=== PATIENT | male | born 1970 | race Caucasian/White ===

== ENCOUNTER 2020-02-12 08:41 | Outpatient (REF) | payer BC, SELFPAY ==
[2020-02-12 10:07] LABS: MANUAL DIFF FLAG NO
[2020-02-12 10:16] LABS: Basophils Absolute Auto 0.1 X10*3/uL (0.0-0.2); Basophils Percent Auto 0.7 % (0-2); Eosinophils Absolute Auto 0.3 X10*3/uL (0.0-0.4); Eosinophils Percent Auto 2.3 % (0-4); Hemoglobin 15.3 g/dl (14.0-18.0); Imm Gran Abs Auto 0.11 X10*3/uL (0.00-0.03); Lymphocytes Absolute Auto 4.1 X10*3/uL (1.2-4.9); Lymphocytes Percent Auto 38.7 % (20-40); Mean Corpuscular HGB Conc 33.3 g/dl (31.0-36.0); Mean Corpuscular Hemoglobin 30.1 pg (27.0-33.0); Mean Corpuscular Volume 90.6 fL (80-98); Mean Platelet Volume 10.2 fL (9.4-12.4); Monocytes Absolute Auto 0.7 X10*3/uL (0.1-1.2); Monocytes Percent Auto 6.9 % (2-11); Neutrophils Absolute Auto 5.4 X10*3/uL (2.0-8.3); Neutrophils Percent Auto 50.4 % (45-73); Platelet Count 296 X10*3/uL (160-400); Red Blood Count 5.08 X10*6/uL (4.60-5.80); Red Cell Distribution Width 12.5 % (11.0-16.0); White Blood Count 10.7 X10*3/uL (4.8-10.8)
[2020-02-12 10:23] LABS: Estimated Average Glucose 217 mg/dL; Hemoglobin A1c % 9.2 %
[2020-02-12 11:07] LABS: Alanine Aminotransferase 33 U/L (0-40); Albumin Level 4.5 g/dL (3.5-5.0); Alkaline Phosphatase 69 U/L (39-117); Anion Gap 13 (12-20); Aspartate Amino Transferase 27 U/L (5-37); Bilirubin Total 0.6 mg/dL (0.0-1.0); Blood Urea Nitrogen 24 mg/dL (9-16); Calcium 9.9 mg/dL (8.4-10.2); Carbon Dioxide 31 mmol/L (22-29); Chloride 102 mmol/L (96-108); Cholesterol 153 mg/dL; Estimated Glomerular Filt Rate > 60; Glucose Fasting 129 mg/dL (60-99); HDL Cholesterol 36 mg/dL; LDL Cholesterol Calculated 99 mg/dl; Potassium 4.2 mmol/l (3.3-5.1); Sodium 142 mmol/L (135-145); Total Protein 7.3 g/dL (6.5-8.0); Triglycerides 91 mg/dL
[2020-02-12 12:08] LABS: Creatinine Urine 226.58 mg/dL; Microalbum/Creatinine Ratio Ur 14.1 ug/mg cr
== END 2020-02-12 08:42 | disposition home or self-care (01) ==
LOC: HO.LAB 08:41
PROVIDERS: PCP Internal Medicine; Visit Provider Internal Medicine
DX: J44.9 Chronic obstructive pulmonary disease, unspecified (principal); I10 Essential (primary) hypertension; E11.9 Type 2 diabetes mellitus without complications
CPT/HCPCS: 36415; 80053; 80061; 82043; 83036; 85025

== ENCOUNTER 2020-05-11 06:48 | Outpatient (REF) | payer BC, SELFPAY ==
[2020-05-11 07:53] LABS: Estimated Average Glucose 206 mg/dL; Hemoglobin A1c % 8.8 %
[2020-05-11 07:58] LABS: Anion Gap 15 (12-20); Blood Urea Nitrogen 25 mg/dL (9-16); Calcium 9.6 mg/dL (8.4-10.2); Carbon Dioxide 27 mmol/L (22-29); Chloride 105 mmol/L (96-108); Estimated Glomerular Filt Rate > 60; Glucose Random 148 mg/dL (60-115); Potassium 4.7 mmol/l (3.3-5.1); Sodium 142 mmol/L (135-145)
== END 2020-05-11 06:49 | disposition home or self-care (01) ==
LOC: HO.LAB 06:48
PROVIDERS: Visit Provider Internal Medicine
DX: E11.9 Type 2 diabetes mellitus without complications (principal); J44.9 Chronic obstructive pulmonary disease, unspecified; E78.00 Pure hypercholesterolemia, unspecified; Z86.73 Personal history of transient ischemic attack (TIA), and cerebral infarction without residual deficits
CPT/HCPCS: 36415; 80048; 83036

== ENCOUNTER 2020-08-10 06:57 | Outpatient (REF) | payer BC, SELFPAY ==
[2020-08-10 07:54] LABS: MANUAL DIFF FLAG NO
[2020-08-10 08:04] LABS: Basophils Absolute Auto 0.1 X10*3/uL (0.0-0.2); Basophils Percent Auto 0.7 % (0-2); Eosinophils Absolute Auto 0.4 X10*3/uL (0.0-0.4); Eosinophils Percent Auto 3.5 % (0-4); Hematocrit 44.7 % (42-52); Hemoglobin 14.6 g/dl (14.0-18.0); Imm Gran Abs Auto 0.04 X10*3/uL (0.00-0.03); Imm Gran Pct Auto 0.4 % (0.0-0.4); Lymphocytes Absolute Auto 3.5 X10*3/uL (1.2-4.9); Lymphocytes Percent Auto 34.6 % (20-40); Mean Corpuscular HGB Conc 32.7 g/dl (31.0-36.0); Mean Corpuscular Hemoglobin 30.2 pg (27.0-33.0); Mean Corpuscular Volume 92.4 fL (80-98); Mean Platelet Volume 10.1 fL (9.4-12.4); Monocytes Absolute Auto 0.6 X10*3/uL (0.1-1.2); Monocytes Percent Auto 5.7 % (2-11); Neutrophils Absolute Auto 5.6 X10*3/uL (2.0-8.3); Neutrophils Percent Auto 55.1 % (45-73); Platelet Count 259 X10*3/uL (160-400); Red Blood Count 4.84 X10*6/uL (4.60-5.80); Red Cell Distribution Width 12.5 % (11.0-16.0); White Blood Count 10.2 X10*3/uL (4.8-10.8)
[2020-08-10 08:33] LABS: Alanine Aminotransferase 21 U/L (0-40); Albumin Level 4.3 g/dL (3.5-5.0); Alkaline Phosphatase 57 U/L (39-117); Anion Gap 15 (12-20); Aspartate Amino Transferase 19 U/L (5-37); Bilirubin Total 0.4 mg/dL (0.0-1.0); Blood Urea Nitrogen 15 mg/dL (9-16); Calcium 9.1 mg/dL (8.4-10.2); Carbon Dioxide 25 mmol/L (22-29); Chloride 104 mmol/L (96-108); Cholesterol 142 mg/dL; Estimated Glomerular Filt Rate > 60; Glucose Fasting 155 mg/dL (60-99); HDL Cholesterol 41 mg/dL; LDL Cholesterol Calculated 84 mg/dl; Potassium 4.3 mmol/L (3.3-5.1); Sodium 140 mmol/L (135-145); Total Protein 6.9 g/dL (6.5-8.0); Triglycerides 85 mg/dL
[2020-08-10 08:56] LABS: Creatinine Urine 172.19 mg/dL; Microalbum/Creatinine Ratio Ur 6.9 ug/mg cr
[2020-08-10 09:09] LABS: Estimated Average Glucose 180 mg/dL; Hemoglobin A1c % 7.9 %
== END 2020-08-10 06:58 | disposition home or self-care (01) ==
LOC: HO.LAB 06:57
PROVIDERS: PCP Internal Medicine; Visit Provider Internal Medicine
DX: J44.9 Chronic obstructive pulmonary disease, unspecified (principal); E11.9 Type 2 diabetes mellitus without complications
CPT/HCPCS: 36415; 80053; 80061; 82043; 83036; 85025

== ENCOUNTER 2021-02-13 10:22 | Outpatient (REF) | payer BC, SELFPAY ==
[2021-02-13 10:32] LABS: MANUAL DIFF FLAG NO
[2021-02-13 11:23] LABS: Estimated Average Glucose 166 mg/dL; Hemoglobin A1c % 7.4 %
[2021-02-13 11:33] LABS: Basophils Absolute Auto 0.1 X10*3/uL (0.0-0.2); Basophils Percent Auto 0.9 % (0-2); Eosinophils Absolute Auto 0.4 X10*3/uL (0.0-0.4); Eosinophils Percent Auto 3.9 % (0-4); Hematocrit 40.9 % (42-52); Hemoglobin 13.9 g/dl (14.0-18.0); Imm Gran Abs Auto 0.02 X10*3/uL (0.00-0.03); Imm Gran Pct Auto 0.2 % (0.0-0.4); Lymphocytes Absolute Auto 3.9 X10*3/uL (1.2-4.9); Lymphocytes Percent Auto 41.5 % (20-40); Mean Corpuscular Hemoglobin 30.5 pg (27.0-33.0); Mean Corpuscular Volume 89.9 fL (80-98); Mean Platelet Volume 10.3 fL (9.4-12.4); Monocytes Absolute Auto 0.7 X10*3/uL (0.1-1.2); Monocytes Percent Auto 7.8 % (2-11); Neutrophils Absolute Auto 4.3 X10*3/uL (2.0-8.3); Neutrophils Percent Auto 45.7 % (45-73); Platelet Count 264 X10*3/uL (160-400); Red Blood Count 4.55 X10*6/uL (4.60-5.80); Red Cell Distribution Width 12.4 % (11.0-16.0); White Blood Count 9.5 X10*3/uL (4.8-10.8)
[2021-02-13 11:45] LABS: Creatinine Urine 78.83 mg/dL; Microalbum/Creatinine Ratio Ur 10.1 ug/mg cr
[2021-02-13 11:47] LABS: Alanine Aminotransferase 26 U/L (0-40); Albumin Level 4.4 g/dL (3.5-5.0); Alkaline Phosphatase 67 U/L (39-117); Anion Gap 12 (12-20); Aspartate Amino Transferase 27 U/L (5-37); Bilirubin Total 0.3 mg/dL (0.0-1.0); Blood Urea Nitrogen 20 mg/dL (9-16); Calcium 9.9 mg/dL (8.4-10.2); Carbon Dioxide 28 mmol/L (22-29); Chloride 105 mmol/L (96-108); Estimated Glomerular Filt Rate > 60; Glucose Random 131 mg/dL (60-115); Sodium 141 mmol/L (135-145)
== END 2021-02-13 10:23 | disposition home or self-care (01) ==
LOC: HO.LAB 10:22
PROVIDERS: PCP Internal Medicine; Visit Provider Internal Medicine
DX: E11.9 Type 2 diabetes mellitus without complications (principal); J44.9 Chronic obstructive pulmonary disease, unspecified; Z85.9 Personal history of malignant neoplasm, unspecified
CPT/HCPCS: 36415; 80053; 82043; 83036; 85025

== ENCOUNTER 2021-08-30 08:41 | Outpatient (REF) | payer BC, SELFPAY ==
[2021-08-30 09:09] LABS: MANUAL DIFF FLAG NO
[2021-08-30 09:44] LABS: Basophils Absolute Auto 0.1 X10*3/uL (0.0-0.2); Basophils Percent Auto 0.5 % (0-2); Eosinophils Absolute Auto 0.3 X10*3/uL (0.0-0.4); Eosinophils Percent Auto 2.6 % (0-4); Hematocrit 43.8 % (42.0-52.0); Hemoglobin 14.4 g/dl (14.0-18.0); Imm Gran Abs Auto 0.02 X10*3/uL (0.00-0.03); Imm Gran Pct Auto 0.2 % (0.0-0.4); Lymphocytes Percent Auto 31.5 % (20-40); Mean Corpuscular HGB Conc 32.9 g/dl (31.0-36.0); Mean Corpuscular Hemoglobin 29.9 pg (27.0-33.0); Mean Corpuscular Volume 91.1 fL (80.0-98.0); Mean Platelet Volume 10.3 fL (9.4-12.4); Monocytes Absolute Auto 0.6 X10*3/uL (0.1-1.2); Monocytes Percent Auto 6.7 % (2-11); Neutrophils Absolute Auto 5.6 x10*3/uL (2.0-8.3); Neutrophils Percent Auto 58.5 % (45-73); Platelet Count 239 X10*3/uL (160-400); Red Blood Count 4.81 X10*6/uL (4.60-5.80); Red Cell Distribution Width 12.8 % (11.0-16.0); White Blood Count 9.5 X10*3/uL (4.8-10.8)
[2021-08-30 10:20] LABS: Alanine Aminotransferase 24 U/L (0-40); Albumin Level 4.1 g/dL (3.5-5.0); Alkaline Phosphatase 57 U/L (39-117); Anion Gap 14 (12-20); Aspartate Amino Transferase 28 U/L (5-37); Bilirubin Total 0.7 mg/dL (0.0-1.0); Blood Urea Nitrogen 19 mg/dL (9-16); Calcium 9.4 mg/dL (8.4-10.2); Carbon Dioxide 26 mmol/L (22-29); Chloride 105 mmol/L (96-108); Cholesterol 135 mg/dL; Estimated Glomerular Filt Rate > 60; Glucose Fasting 141 mg/dL (60-99); HDL Cholesterol 40 mg/dL; LDL Cholesterol Calculated 84 mg/dl; Potassium 4.2 mmol/L (3.3-5.1); Sodium 141 mmol/L (135-145); Total Protein 6.8 g/dL (6.5-8.0); Triglycerides 58 mg/dL
[2021-08-30 10:33] LABS: Prostate Specific Antigen 1.13 ng/mL (<0.05-4.0)
[2021-08-30 10:45] LABS: Estimated Average Glucose 157 mg/dL; Hemoglobin A1c % 7.1 %
[2021-08-30 10:47] LABS: Microalbumin Urine < 5.0 mg/L
== END 2021-08-30 08:42 | disposition home or self-care (01) ==
LOC: HO.LAB 08:41
PROVIDERS: PCP Internal Medicine; Visit Provider Internal Medicine
DX: Z00.00 Encounter for general adult medical examination without abnormal findings (principal); E11.9 Type 2 diabetes mellitus without complications; Z12.5 Encounter for screening for malignant neoplasm of prostate
CPT/HCPCS: 36415; 80053; 80061; 82043; 83036; 84153; 85025

== ENCOUNTER 2021-10-22 08:35 | Day surgery (SDC) | payer BC, SELFPAY ==
[2021-10-14 16:22] VITALS: BMI 23.8
--- NOTE | 2021-10-21 12:32 | HO.ANESPROP2 ---
Documented by User: Maggie Cabrera NP 10/21/21 12:33 HPI - Anesthesia Eval Consult details Narrative: 51yo M for Colonoscopy Suboxon daily PMFSH Past Medical History Medical History Asthma COPD (chronic obstructive pulmonary disease) Diabetes Elevated cholesterol Hx-TIA (transient ischemic attack) Surgical History Surgical History History of back surgery History of lung biopsy Social History Social History Patient Tobacco Use Status: Current everyday Tobacco user Tobacco use type: Cigarette Cigarettes Per Day: 4 Use of substances other than those prescribed or required for medical reasons: No Are you DNR?: No Advance Directives: No Advance Directives Information Provided: Yes Meds Allergies Allergy/AdvReac Type Severity Reaction Status Date / Time No Known Allergies Allergy Mild NOT Unverified 01/16/20 14:37 APPLICABLE Home Medications Medication Instructions Recorded Confirmed Last Taken Type albuterol sulfate 90 mcg/actuation 2 puff PO TID PRN Shortness Of 10/14/21 10/14/21 Unknown History aerosol inhaler Breath Or Wheezing aspirin 25 mg-dipyridamole 200 mg 1 tab PO BID 10/14/21 10/14/21 Unknown History capsule,ext.release 12 hr multiphase atorvastatin 80 mg tablet 1 tab PO DAILY 10/14/21 10/14/21 Unknown History budesonide-formoterol HFA 160 1 puff PO BID 10/14/21 10/14/21 Unknown History mcg-4.5 mcg/actuation aerosol inhaler (Symbicort) buprenorphine 8 mg-naloxone 2 mg 1.25 strip sublingual DAILY 10/14/21 10/14/21 Unknown History sublingual film escitalopram oxalate 10 mg tablet 1 tab PO DAILY 10/14/21 10/14/21 Unknown History Exam Exam Date and Time: October 21, 2021 1232 Height,Weight and Vital Signs: Height 5 ft 10 in Weight 75.296 kg Pertinent Lab Results Pertinent Lab Results: Laboratory Tests 08/30/21 08/30/21 09:07 09:07 WBC 9.5 Hgb 14.4 Hct 43.8 Plt Count 239 Sodium 141 Potassium 4.2 Chloride 105 Carbon Dioxide 26 BUN 19 H Creatinine 0.87 Assessment and Plan Assessment Anesthesia Assessment: Chart Reviewed Documented by User: Rigo Somers MD 10/22/21 09:18 [facility] Past Medical History Medical History Asthma COPD (chronic obstructive pulmonary disease) Diabetes Elevated cholesterol Hx-TIA (transient ischemic attack) Family History Family history of problems with anesthesia: No Surgical History Surgical History History of back surgery History of lung biopsy History of Problems with Anesthesia: No Social History Social History Patient Tobacco Use Status: Current everyday Tobacco user Tobacco use type: Cigarette Cigarettes Per Day: 4 Use of substances other than those prescribed or required for medical reasons: No Are you DNR?: No Advance Directives: No Advance Directives Information Provided: Yes Meds Allergies Allergy/AdvReac Type Severity Reaction Status Date / Time No Known Allergies Allergy Mild NOT Unverified 01/16/20 14:37 APPLICABLE Home Medications Medication Instructions Recorded Confirmed Last Taken Type albuterol sulfate 90 mcg/actuation 2 puff PO TID PRN Shortness Of 10/14/21 10/14/21 Unknown History aerosol inhaler Breath Or Wheezing aspirin 25 mg-dipyridamole 200 mg 1 tab PO BID 10/14/21 10/14/21 Unknown History capsule,ext.release 12 hr multiphase atorvastatin 80 mg tablet 1 tab PO DAILY 10/14/21 10/14/21 Unknown History budesonide-formoterol HFA 160 1 puff PO BID 10/14/21 10/14/21 Unknown History mcg-4.5 mcg/actuation aerosol inhaler (Symbicort) buprenorphine 8 mg-naloxone 2 mg 1.25 strip sublingual DAILY 10/14/21 10/14/21 Unknown History sublingual film escitalopram oxalate 10 mg tablet 1 tab PO DAILY 10/14/21 10/14/21 Unknown History Exam Airway Mallampati Class: II TM Dist: >3cm Neck ROM: Full Assessment and Plan Assessment Anesthesia Assessment: Anesthesia Plan Discussed and Smoking Cess. Discussed Final Anesthetic Review Family History of Problems with Anesthesia: No History of Problems with Anesthesia: No NPO: Yes ASA Class: II and III Final Preanesthetic Review: No Changes in Pt Med Stat, Meds/Allgs Chart Reviewed, Consent Obtained/Reviewed and Anes Risks/Benef Reviewed Patient Risk: Intermediate Procedure Risk: Low Anesthetic Plan Anesthetic Plan: GA and MAC: Disposition: Standard PACU
[2021-10-22 09:26] VITALS: BP 144/85; PULSE 65; RESP 16; TEMP 36.2; O2SAT 94
[2021-10-22 09:35] LABS: Glucose, Whole Blood 108 mg/dL (60-115)
[2021-10-22] MEDS: Lactated Ringers 1,000 ML 100 ML IVCONT (09:39)
--- NOTE | 2021-10-22 09:46 | MHC.SHP ---
Pre-Procedural Eval Section A Date of Service: 10/22/21 Section B Chief Complaint: screening Details of Present Illness: see H&P no changes Relevant Family History (Specify if Yes): No Relevant Social History: None Present Medications: see Short Stay Collaborative assessment Medical History: No relevant PMH History of Previous Operations: No relevant previous surgery Allergies: Allergies Allergy/AdvReac Type Severity Reaction Status Date / Time No Known Allergies Allergy Mild NOT Unverified 01/16/20 14:37 APPLICABLE Review of Systems Sugical H&P ROS: Negative: Constitution, Cardiovascular, Respiratory, Neurological, Psychiatric, Hem-Onc, Allergic/Immunologic, Gastrointestinal, Genitourinary, Musculoskeletal, Integumentary, Endocrine and Eyes/Ears/Nose/Throat Exam Surgical H&P Exam: Normal: HEENT, Normal: Heart, Normal: Lungs, Normal: Extremities, Normal: Abdomen, Normal: Skin and Normal: Neurological Plan Diagnosis/Plan: Unchanged I have reviewed the history and physical and performed a pertinent physical examination on my patient. No changes have occurred unless specified.
[2021-10-22 10:19] VITALS: BP 106/69; PULSE 58; RESP 16; TEMP 36.6; O2SAT 99
--- NOTE | 2021-10-22 10:21 | PM.OP ---
Brief Operative Note Date of Service: 10/22/21 Pre-op diagnosis: screening Post-op diagnosis: same Procedure: colonoscopy Surgeon: Sina Conte Anesthesia: MAC Was an Hybrid Technologist used for this Procedure?: No Estimated blood loss (mL): 0 Pathology: none sent Condition: stable Disposition: PACU
[2021-10-22 10:34] VITALS: BP 118/88; PULSE 62; RESP 18; TEMP 36.6; O2SAT 95
--- NOTE | 2021-10-22 11:36 | OP_ITS ---
SURGEON: Sina Conte MD INDICATIONS: Colon cancer screening. PREOPERATIVE DIAGNOSIS: POSTOPERATIVE DIAGNOSIS: PROCEDURE PERFORMED: Colonoscopy to the terminal ileum. ESTIMATED BLOOD LOSS: COMPLICATIONS: ANESTHESIA: Monitored anesthesia care. ASSISTANTS: SPECIMENS: DESCRIPTION OF PROCEDURE: History and physical was performed. The risks and benefits of the procedure were explained to the patient. Informed consent was obtained. The patient was placed in the left lateral decubitus position. A digital rectal exam was performed and was found to be normal. The Olympus pediatric video colonoscope was introduced into the rectum and advanced to the cecum without difficulty. The cecum was identified by transillumination, palpation, and identification of ileocecal valve. Examination was performed. The scope was removed. He tolerated the procedure well and was taken to recovery in stable condition. FINDINGS: The terminal ileum was examined and appeared normal. The visualized colonic mucosa was within normal limits without evidence of masses or ulcers. The quality of the prep was good. No polyps were identified. There was some minor nonspecific inflammation in the rectum, likely related to the prep. A few diverticula were seen in the sigmoid colon. Retroflexed examination was normal. IMPRESSION: Normal colonoscopy. RECOMMENDATION: 1. Follow up as needed. 2. Repeat colonoscopy is recommended in 10 years for average risk individuals. MD PIPO Tran/HERLINDAL / [id number]
== END 2021-10-22 10:46 | disposition home or self-care (01) ==
PROVIDERS: PCP Internal Medicine; Visit Provider Internal Medicine Gastroenterology
PROC: 0DJD8ZZ Inspection of Lower Intestinal Tract, Via Natural or Artificial Opening Endoscopic (ICD-10-PCS; CPT 45378; principal; 2021-10-22 10:00)
DX: Z12.11 Encounter for screening for malignant neoplasm of colon (principal); K57.30 Diverticulosis of large intestine without perforation or abscess without bleeding; J44.9 Chronic obstructive pulmonary disease, unspecified; E11.9 Type 2 diabetes mellitus without complications; Z79.51 Long term (current) use of inhaled steroids; Z79.82 Long term (current) use of aspirin; Z79.899 Other long term (current) drug therapy; Z86.73 Personal history of transient ischemic attack (TIA), and cerebral infarction without residual deficits; F17.210 Nicotine dependence, cigarettes, uncomplicated
CPT/HCPCS: 45378; 82947

== ENCOUNTER 2022-03-22 10:38 | Outpatient (REF) | payer BC, SELFPAY ==
[2022-03-22 10:50] LABS: MANUAL DIFF FLAG NO
[2022-03-22 11:18] LABS: Basophils Absolute Auto 0.1 X10*3/uL (0.0-0.2); Basophils Percent Auto 0.9 % (0-2); Eosinophils Absolute Auto 0.4 X10*3/uL (0.0-0.4); Eosinophils Percent Auto 4.1 % (0-4); Hematocrit 44.7 % (42.0-52.0); Hemoglobin 14.2 g/dl (14.0-18.0); Imm Gran Abs Auto 0.03 X10*3/uL (0.00-0.03); Imm Gran Pct Auto 0.3 % (0.0-0.4); Lymphocytes Absolute Auto 3.3 X10*3/uL (1.2-4.9); Lymphocytes Percent Auto 38.1 % (20-40); Mean Corpuscular HGB Conc 31.8 g/dl (31.0-36.0); Mean Corpuscular Hemoglobin 28.5 pg (27.0-33.0); Mean Corpuscular Volume 89.8 fL (80.0-98.0); Mean Platelet Volume 10.4 fL (9.4-12.4); Monocytes Absolute Auto 0.6 X10*3/uL (0.1-1.2); Monocytes Percent Auto 6.9 % (2-11); Neutrophils Absolute Auto 4.3 x10*3/uL (2.0-8.3); Neutrophils Percent Auto 49.7 % (45-73); Platelet Count 273 X10*3/uL (160-400); Red Blood Count 4.98 X10*6/uL (4.60-5.80); Red Cell Distribution Width 13.8 % (11.0-16.0); White Blood Count 8.7 X10*3/uL (4.8-10.8)
[2022-03-22 12:00] LABS: Estimated Average Glucose 174 mg/dL; Hemoglobin A1c % 7.7 %
[2022-03-22 12:46] LABS: Creatinine Urine 158.15 mg/dL; Microalbum/Creatinine Ratio Ur 6.3 ug/mg cr
[2022-03-22 13:12] LABS: Alanine Aminotransferase 24 U/L (0-40); Albumin Level 4.3 g/dL (3.5-5.0); Alkaline Phosphatase 67 U/L (39-117); Anion Gap 16 (12-20); Aspartate Amino Transferase 25 U/L (5-37); Bilirubin Total 0.4 mg/dL (0.0-1.0); Blood Urea Nitrogen 20 mg/dL (9-16); Calcium 9.8 mg/dL (8.4-10.2); Carbon Dioxide 28 mmol/L (22-29); Chloride 103 mmol/L (96-108); Cholesterol 159 mg/dL; Estimated Glomerular Filt Rate > 60; Glucose Random 164 mg/dL (60-115); HDL Cholesterol 38 mg/dL; LDL Cholesterol Calculated 92 mg/dl; Potassium 4.6 mmol/L (3.3-5.1); Sodium 142 mmol/L (135-145); Triglycerides 149 mg/dL
== END 2022-03-22 10:39 | disposition home or self-care (01) ==
LOC: HO.LAB 10:38
PROVIDERS: PCP Internal Medicine; Visit Provider Internal Medicine
DX: Z00.00 Encounter for general adult medical examination without abnormal findings (principal); Z12.5 Encounter for screening for malignant neoplasm of prostate
CPT/HCPCS: 36415; 80053; 80061; 82043; 83036; 84153; 85025

== ENCOUNTER 2023-01-16 08:21 | Outpatient (REF) | payer BC, SELFPAY ==
[2023-01-16 08:37] LABS: MANUAL DIFF FLAG NO
[2023-01-16 08:50] LABS: Basophils Absolute Auto 0.1 X10*3/uL (0.0-0.2); Basophils Percent Auto 0.7 % (0-2); Eosinophils Absolute Auto 0.4 X10*3/uL (0.0-0.4); Eosinophils Percent Auto 4.2 % (0-4); Hematocrit 45.3 % (42.0-52.0); Hemoglobin 15.5 g/dl (14.0-18.0); Imm Gran Abs Auto 0.02 X10*3/uL (0.00-0.03); Imm Gran Pct Auto 0.2 % (0.0-0.4); Lymphocytes Absolute Auto 4.1 X10*3/uL (1.2-4.9); Lymphocytes Percent Auto 46.5 % (20-40); Mean Corpuscular HGB Conc 34.2 g/dl (31.0-36.0); Mean Corpuscular Hemoglobin 29.6 pg (27.0-33.0); Mean Corpuscular Volume 86.6 fL (80.0-98.0); Mean Platelet Volume 9.9 fL (9.4-12.4); Monocytes Absolute Auto 0.7 X10*3/uL (0.1-1.2); Monocytes Percent Auto 7.4 % (2-11); Neutrophils Absolute Auto 3.6 x10*3/uL (2.0-8.3); Platelet Count 228 X10*3/uL (160-400); Red Blood Count 5.23 X10*6/uL (4.60-5.80); Red Cell Distribution Width 12.7 % (11.0-16.0); White Blood Count 8.8 X10*3/uL (4.8-10.8)
[2023-01-16 09:10] LABS: Estimated Average Glucose 252 mg/dL; Hemoglobin A1c % 10.4 % (<6.0)
[2023-01-16 09:22] LABS: Alanine Aminotransferase 22 U/L (0-40); Albumin Level 4.1 g/dL (3.5-5.0); Alkaline Phosphatase 74 U/L (39-117); Anion Gap 12 (12-20); Aspartate Amino Transferase 20 U/L (5-37); Bilirubin Total 0.4 mg/dL (0.0-1.0); Blood Urea Nitrogen 18 mg/dL (9-16); Calcium 9.7 mg/dL (8.4-10.2); Carbon Dioxide 29 mmol/L (22-29); Chloride 107 mmol/L (96-108); Estimated Glomerular Filt Rate > 60; Glucose Random 185 mg/dL (60-115); Potassium 3.7 mmol/L (3.3-5.1); Sodium 144 mmol/L (135-145); Total Protein 7.1 g/dL (6.5-8.0)
[2023-01-16 09:56] LABS: Creatinine Urine 130.81 mg/dL; Microalbum/Creatinine Ratio Ur 7.6 ug/mg cr (<30)
== END 2023-01-16 08:22 | disposition home or self-care (01) ==
LOC: HO.LAB 08:21
PROVIDERS: PCP Internal Medicine; Visit Provider Internal Medicine
DX: E11.9 Type 2 diabetes mellitus without complications (principal); J45.909 Unspecified asthma, uncomplicated; Z86.73 Personal history of transient ischemic attack (TIA), and cerebral infarction without residual deficits; Z79.4 Long term (current) use of insulin
CPT/HCPCS: 36415; 80053; 82043; 82570; 83036; 85025

== ENCOUNTER 2023-05-13 07:56 | Outpatient (REF) | payer OTHER, SELFPAY ==
[2023-05-13 09:07] LABS: Estimated Average Glucose 146 mg/dL; Hemoglobin A1c % 6.7 % (<6.0)
[2023-05-13 09:42] LABS: Anion Gap 13 (12-20); Blood Urea Nitrogen 24 mg/dL (9-16); Calcium 9.8 mg/dL (8.4-10.2); Carbon Dioxide 28 mmol/L (22-29); Chloride 106 mmol/L (96-108); Estimated Glomerular Filt Rate > 60; Glucose Random 141 mg/dL (60-115); Sodium 143 mmol/L (135-145)
== END 2023-05-13 07:57 | disposition home or self-care (01) ==
LOC: HO.LAB 07:56
PROVIDERS: PCP Internal Medicine; Visit Provider Internal Medicine
DX: E11.9 Type 2 diabetes mellitus without complications (principal); J44.9 Chronic obstructive pulmonary disease, unspecified
CPT/HCPCS: 36415; 80048; 83036

== ENCOUNTER 2023-09-08 09:40 | Outpatient (REF) | payer OTHER, SELFPAY ==
--- NOTE | ~2023-09-08 | XR_ITS ---
EXAMINATION: XR CHEST CLINICAL INFORMATION: Weight loss, COPD. COMPARISON: 10/14/2019 TECHNIQUE: 3 views of the chest. FINDINGS: Redemonstration of old healed right rib fractures. Degenerative changes in the thoracic spine. No gross pleural effusion. The lungs are hyperinflated with emphysematous changes better characterized on prior CT scans. Right apical bullous change was better characterized on CT scan of 2019. Increased bilateral diffuse predominantly perihilar/central interstitial opacities, left greater than right. Possible increased density and fullness of right hilum. XR/XR chest 2V IMPRESSION: Increased bilateral diffuse predominantly perihilar/central interstitial opacities, left greater than right. Possible increased density and fullness of right hilum. Emphysematous changes better characterized on prior CT scans. CT scan of the chest recommended for further evaluation.
[2023-09-08 10:01] LABS: MANUAL DIFF FLAG NO
[2023-09-08 10:42] LABS: Basophils Absolute Auto 0.1 X10*3/uL (0.0-0.2); Basophils Percent Auto 0.8 % (0-2); Eosinophils Absolute Auto 0.3 X10*3/uL (0.0-0.4); Eosinophils Percent Auto 3.4 % (0-4); Hematocrit 39.8 % (42.0-52.0); Hemoglobin 13.4 g/dl (14.0-18.0); Imm Gran Abs Auto 0.03 X10*3/uL (0.00-0.03); Imm Gran Pct Auto 0.4 % (0.0-0.4); Lymphocytes Absolute Auto 2.9 X10*3/uL (1.2-4.9); Lymphocytes Percent Auto 38.1 % (20-40); Mean Corpuscular HGB Conc 33.7 g/dl (31.0-36.0); Mean Corpuscular Hemoglobin 30.5 pg (27.0-33.0); Mean Corpuscular Volume 90.5 fL (80.0-98.0); Monocytes Absolute Auto 0.5 X10*3/uL (0.1-1.2); Monocytes Percent Auto 6.5 % (2-11); Neutrophils Absolute Auto 3.9 x10*3/uL (2.0-8.3); Neutrophils Percent Auto 50.8 % (45-73); Platelet Count 249 X10*3/uL (160-400); Red Cell Distribution Width 13.2 % (11.0-16.0); White Blood Count 7.6 X10*3/uL (4.8-10.8)
[2023-09-08 10:49] LABS: Estimated Average Glucose 151 mg/dL; Hemoglobin A1c % 6.9 % (<6.0)
[2023-09-08 11:25] LABS: Alanine Aminotransferase 28 U/L (0-40); Albumin Level 4.2 g/dL (3.5-5.0); Alkaline Phosphatase 65 U/L (39-117); Anion Gap 14 (12-20); Aspartate Amino Transferase 25 U/L (5-37); Bilirubin Total 0.3 mg/dL (0.0-1.0); Blood Urea Nitrogen 26 mg/dL (9-16); Calcium 9.7 mg/dL (8.4-10.2); Carbon Dioxide 26 mmol/L (22-29); Chloride 107 mmol/L (96-108); Estimated Glomerular Filt Rate > 60; Glucose Random 154 mg/dL (60-115); Sodium 143 mmol/L (135-145); Total Protein 7.2 g/dL (6.5-8.0)
== END 2023-09-08 09:41 | disposition home or self-care (01) ==
LOC: HO.LAB 09:40
PROVIDERS: PCP Internal Medicine; Visit Provider Internal Medicine
DX: R63.4 Abnormal weight loss (principal); E11.9 Type 2 diabetes mellitus without complications; J44.9 Chronic obstructive pulmonary disease, unspecified
CPT/HCPCS: 36415; 71046; 80053; 83036; 85025

== ENCOUNTER 2024-05-07 07:16 | Outpatient (REF) | payer OTHER, SELFPAY ==
[2024-05-07 07:27] LABS: MANUAL DIFF FLAG NO
[2024-05-07 07:53] LABS: Basophils Absolute Auto 0.1 X10*3/uL (0.0-0.2); Basophils Percent Auto 0.8 % (0-2); Eosinophils Absolute Auto 0.1 X10*3/uL (0.0-0.4); Eosinophils Percent Auto 1.4 % (0-4); Hematocrit 39.4 % (42.0-52.0); Hemoglobin 13.2 g/dl (14.0-18.0); Imm Gran Abs Auto 0.03 X10*3/uL (0.00-0.03); Imm Gran Pct Auto 0.3 % (0.0-0.4); Lymphocytes Absolute Auto 2.7 X10*3/uL (1.2-4.9); Lymphocytes Percent Auto 29.6 % (20-40); Mean Corpuscular HGB Conc 33.5 g/dl (31.0-36.0); Mean Corpuscular Hemoglobin 30.1 pg (27.0-33.0); Mean Corpuscular Volume 89.7 fL (80.0-98.0); Mean Platelet Volume 10.1 fL (9.4-12.4); Monocytes Absolute Auto 0.4 X10*3/uL (0.1-1.2); Monocytes Percent Auto 4.9 % (2-11); Neutrophils Absolute Auto 5.7 x10*3/uL (2.0-8.3); Platelet Count 247 X10*3/uL (160-400); Red Blood Count 4.39 X10*6/uL (4.60-5.80); Red Cell Distribution Width 12.5 % (11.0-16.0)
[2024-05-07 08:19] LABS: Alanine Aminotransferase 28 U/L (0-40); Albumin Level 4.4 g/dL (3.5-5.0); Alkaline Phosphatase 71 U/L (39-117); Anion Gap 12 (12-20); Aspartate Amino Transferase 31 U/L (5-37); Bilirubin Total 0.3 mg/dL (0.0-1.0); Blood Urea Nitrogen 19 mg/dL (9-16); Calcium 9.5 mg/dL (8.4-10.2); Carbon Dioxide 26 mmol/L (22-29); Chloride 108 mmol/L (96-108); Estimated Glomerular Filt Rate > 60; Glucose Random 158 mg/dL (60-115); Potassium 3.8 mmol/L (3.3-5.1); Sodium 142 mmol/L (135-145); Total Protein 7.3 g/dL (6.5-8.0)
[2024-05-07 08:20] LABS: Estimated Average Glucose 163 mg/dL; Hemoglobin A1C 194.3313 umol/L; Hemoglobin A1c % 7.3 % (<6.0); Total Hemoglobin (HGBA1C) 3450.6992 umol/L
== END 2024-05-07 07:17 | disposition home or self-care (01) ==
LOC: HO.LAB 07:16
PROVIDERS: PCP Internal Medicine; Visit Provider Internal Medicine
DX: E11.9 Type 2 diabetes mellitus without complications (principal); J44.9 Chronic obstructive pulmonary disease, unspecified
CPT/HCPCS: 36415; 80053; 83036; 85025

== ENCOUNTER 2024-08-26 06:13 | Outpatient (REF) | payer BC, SELFPAY ==
[2024-08-26 06:32] LABS: MANUAL DIFF FLAG NO
[2024-08-26 07:18] LABS: Basophils Absolute Auto 0.1 X10*3/uL (0.0-0.2); Basophils Percent Auto 1.3 % (0-2); Eosinophils Absolute Auto 0.2 X10*3/uL (0.0-0.4); Eosinophils Percent Auto 3.3 % (0-4); Hematocrit 43.5 % (42.0-52.0); Hemoglobin 14.6 g/dl (14.0-18.0); Imm Gran Abs Auto 0.03 X10*3/uL (0.00-0.03); Imm Gran Pct Auto 0.4 % (0.0-0.4); Lymphocytes Absolute Auto 2.9 X10*3/uL (1.2-4.9); Lymphocytes Percent Auto 41.8 % (20-40); Mean Corpuscular HGB Conc 33.6 g/dl (31.0-36.0); Mean Corpuscular Hemoglobin 30.2 pg (27.0-33.0); Mean Corpuscular Volume 89.9 fL (80.0-98.0); Monocytes Absolute Auto 0.5 X10*3/uL (0.1-1.2); Monocytes Percent Auto 6.8 % (2-11); Neutrophils Absolute Auto 3.2 x10*3/uL (2.0-8.3); Neutrophils Percent Auto 46.4 % (45-73); Platelet Count 311 X10*3/uL (160-400); Red Blood Count 4.84 X10*6/uL (4.60-5.80); Red Cell Distribution Width 12.7 % (11.0-16.0); White Blood Count 6.9 X10*3/uL (4.8-10.8)
[2024-08-26 07:26] LABS: Estimated Average Glucose 177 mg/dL; Hemoglobin A1c % 7.8 % (<6.0)
[2024-08-26 07:51] LABS: Alanine Aminotransferase 27 U/L (0-40); Albumin Level 4.4 g/dL (3.5-5.0); Alkaline Phosphatase 80 U/L (39-117); Anion Gap 14 (12-20); Aspartate Amino Transferase 28 U/L (5-37); Bilirubin Total 0.4 mg/dL (0.0-1.0); Blood Urea Nitrogen 24 mg/dL (9-16); Calcium 9.7 mg/dL (8.4-10.2); Carbon Dioxide 30 mmol/L (22-29); Chloride 105 mmol/L (96-108); Estimated Glomerular Filt Rate > 60; Glucose Random 150 mg/dL (60-115); Potassium 4.1 mmol/L (3.3-5.1); Sodium 145 mmol/L (135-145); Total Protein 7.5 g/dL (6.5-8.0)
[2024-08-26 08:38] LABS: Creatinine Urine 191.93 mg/dL; Microalbum/Creatinine Ratio Ur 14.5 ug/mg cr (<30)
== END 2024-08-26 06:14 | disposition home or self-care (01) ==
LOC: HO.LAB 06:13
PROVIDERS: PCP Internal Medicine; Referring Provider Internal Medicine; Visit Provider Internal Medicine
DX: E11.9 Type 2 diabetes mellitus without complications (principal)
CPT/HCPCS: 36415; 80053; 82043; 82570; 83036; 85025

== ENCOUNTER 2024-08-28 15:27 | Outpatient (AMB) | payer OTHER, SELFPAY ==
--- NOTE | 2024-08-28 15:57 | A.OFFPC_ITS ---
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 Accompanied by: Self / Same As Patient Allergies No Known Allergies Allergy (Mild, Verified 08/30/24 12:21) NOT APPLICABLE Medication List - Last Reconciled 08/30/24 by Desean Zuluaga MD albuterol sulfate 90 mcg/actuation 2 puffs PO TID PRN atorvastatin 1 tab PO DAILY cyclobenzaprine 10 mg PO BEDTIME fluticasone propion-salmeterol 250-50 mcg/dose (Wixela Inhub) 1 inh inhalation BID metformin 500 mg PO BID Tobacco use date assessed: 08/28/24 Dental Screening Dental Screen Date: 08/28/24 Did you have a dental visit in the last 12 months?: No Did you have a dental problem in the last 6 months where you did not have access to dental care?: No [facility] Medical History (Updated 08/30/24 @ 12:30 by Desean Zuluaga MD) Elevated cholesterol Hx-TIA (transient ischemic attack) Diabetes Asthma COPD (chronic obstructive pulmonary disease) Surgical History History of colonoscopy (~10/22/21) History of lung biopsy History of back surgery Family History Mother No problems noted. Father BP (high blood pressure) Social History Housing: House Patient Tobacco Use Status: Former Tobacco user Tobacco use type: Cigarette Cigarettes Per Day: 4 e-Cigarette/Vaping Use: Former Use service: No Current occupational status: employed Cognitive needs: No Hearing needs: No Vision needs: No Questionnaire PHQ-9 Over the last 2 weeks, how often have you been bothered by any of the following problems? 1. Little interest or pleasure in doing things: not at all 2. Feeling down, depressed, or hopeless: not at all 3. Trouble falling or staying asleep, or sleeping too much: not at all 4. Feeling tired or having little energy: not at all 5. Poor appetite or overeating: not at all 6. Feeling bad about yourself - or that you are a failure or have let yourself or your family down: not at all 7. Trouble concentrating on things, such as reading the newspaper or watching television: not at all 8. Moving or speaking so slowly that other people could have noticed. Or the opposite - being so fidgety or restless that you have been moving around a lot more than usual: not at all 9. Thoughts that you would be better off or of hurting yourself in some way: not at all Total score: 0 Source: Developed by Drs. Jc Pinto, Mona Alford, Lee Rahman and colleagues, with an educational michael from [employer]. Thrive Questionnaire Date Thrive assessed: 08/28/24 I am a: Patient Within the past 12 months, did the food you bought not last and you didn't have the money to get more?: Never true Within the past 12 months, did you worry whether your food would run out before you got money to buy more?: Never true Do you have trouble paying for medicines?: No Do you have trouble getting transportation to medical appointments?: No Do you have trouble paying your heating and electricity bill?: No Do you have trouble taking care of your child, family member or friend?: No Do you have trouble with day-to-day activities such as bathing, preparing meals, shopping, managing finances, etc.?: No Are you currently unemployed and looking for a job?: No Are you interested in more education?: No THRIVE Score: 0 AUDIT C Alcohol Use Questionnaire (AUDIT-C) 1. How often do you have a drink containing alcohol?: Never 3. How often do you have six or more drinks on one occasion?: Never Total Score: 0 DENIS-7 AMB Questionnaire DENIS-7 Date DENIS - 7 assessed: 08/28/24 Feeling nervous, anxious, or on edge: 0 = Not at all Not being able to stop or control worryin = Not at all Worrying too much about different things: 0 = Not at all Trouble relaxin = Not at all Being so restless that it is hard to sit still: 0 = Not at all Becoming easily annoyed or irritable: 0 = Not at all Feeling afraid as if something awful might happen: 0 = Not at all Total DENIS-7 score (0-4 normal; 5-9 mild; 10-14 moderate; 15-21 severe): 0 Source: Developed by Drs. Jc Pinto, Mona Alford, Lee Rahman and colleagues, with an educational michael from [employer]. Physical exam (Primary Care) Vital Signs: Last Vital Signs Temp 97.8 F 08/28/24 15:59 Pulse 69 08/28/24 15:59 BP 126/80 08/28/24 15:59 Pulse Ox 98 08/28/24 15:59 Oxygen Delivery Method Room Air 08/28/24 15:59 BMI result Body Mass Index 24.8 Tobacco/Smoking Status: Tobacco use Status Tobacco use date assessed 08/28/24 08/28/24 16:07 Patient Tobacco Use Status Former Tobacco user 08/28/24 16:07 Tobacco use type Cigarette 08/28/24 15:58 e-Cigarette/Vaping Use Former Use 08/28/24 16:07 PHQ-9: PHQ-9 Score PHQ-9: Total score 0 08/28/24 16:07 Thrive Assessment: Date of Thrive Assessment Date Thrive assessed 08/28/24 08/28/24 16:07 Coding Level of Care Code New Pt Level 4 (64718) Complex EM visit Add On G2211 Diagnoses Diabetes E11.9 Assessment & Plan Assessment & Plan (1) Diabetes: Code(s): E11.9 - Type 2 diabetes mellitus without complications Category: Medical Plan: Medications have been restarted. Patient was counseled on how to use metformin. Plan History of Present Illness The patient is a 54-year-old male presenting with sciatica and diabetes management issues. He reports a two-month history of sciatic nerve pain originating in the lower hip and extending to the calf, initially severe but now improving. The condition initially impaired mobility, requiring a cane, and is aggravated by insufficient rest and prolonged standing, with worsening symptoms upon waking. He currently manages symptoms with heating pads and massage. His medical history reveals back surgeries conducted 20 years ago, including joy placement for spinal issues, and he has a history of slight lumbar spinal stenosis and arthritis. In terms of diabetes, he ceased insulin therapy three years ago and reports recent elevated blood sugars, attributed initially to high sugar intake, and expresses interest in transitioning to oral medication due to a dislike for insulin needles. 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 - Substance Use: Stopped drinking alcohol but previously drank heavily, which contributed to elevated blood sugars. - Physical Activity: Mentions riding a motorcycle and boating but has reduced such activities due to sciatica. - Sleep: Reports inadequate sleep during workweeks, impacting health. Review of Systems - Musculoskeletal: Reports sciatica, tight and achy low back; Denies stumbling or falling recently. - Urinary: Denies trouble urinating. - Gastrointestinal: Denies recent issues; previously experienced digestive disco mfort related to metformin. - Endocrine: Preferences against insulin; reported recent elevated glucose levels. - Neurological: Denies additional neurological symptoms apart from sciatic pain. Physical Exam General: Cooperative and healthy appearing Nutritional Appearance: Well nourished Orientation/consciousness: Patient oriented x3 Limitations: No limitations Head: Normal to inspection General: Appearance normal, both eyes and all related structures Neck: Normal visual inspection Chest: Normal palpation of entire chest wall Respiratory: N ormal respiratory effort Neurology: Patient oriented x3, reports sciatic nerve issue affecting lower hip and calf, requiring cane for walking at times. Results - Labs: Reports that routine blood work was completed as ordered. - Tests: Previous CAT scan noted slight lumbar spinal stenosis. Plan - Begin metformin at 500 mg daily, increasing to twice daily as tolerated for diabetes management. - Administer a muscle relaxant in the evening to alleviate sciatica pain. - Encourage consistent usage of a heating pad to manage pain symptoms related to sciatica. - Provide a prescription for a glucometer and supplies for regular self-monitoring of blood glucose levels. - Schedule a follow-up appointment in four weeks to review progress and medication efficacy. Patient was informed and verbally consented to the use of an ambient scribe for clinic note documentation during this visit. Discussion Notes I discussed with the patient that sciatica symptoms are likely due to compression, and non-pharmacologic interventions such as physical therapy and heat application may provide relief. For the management of diabetes, I proposed metformin as a suitable oral agent, given the patient's aversion to insulin injections and previous high blood sugar readings. I highlighted the potential side effects of metformin, including gastrointestinal discomfort, and reassured him these would likely diminish over time. I instructed him to monitor his blood glucose levels regularly and set a follow-up in four weeks to evaluate the effect of the treatment plan. A referral to physical therapy for sciatica was suggested to improve functionality and pain management. Patient Instructions - Take metformin 500 mg as directed: Start with one pill a day and increase to two pills a day after a few days. - Use a heating pad regularly to reduce sciatica pain. - Take the prescribed muscle relaxant at night to help with pain relief. - Check blood sugar levels regularly using the glucometer. - Return for a follow-up appointment in four weeks to check on your progress and adjust medications if needed. - Contact the office if you experience severe side effects from metformin or if sciatica pain worsens significantly. Medications: New cyclobenzaprine 10 mg PO BEDTIME 14 tabs 0RF metformin 500 mg PO BID 180 tabs 1RF
[2024-08-28 15:59] VITALS: BP 126/80; PULSE 69; TEMP 36.6; O2SAT 98; BMI 24.8
== END 2024-08-28 16:27 | disposition home or self-care (01) ==
LOC: HO.HMCHD 15:28
PROVIDERS: PCP Internal Medicine; Visit Provider Internal Medicine
DX: E11.9 Type 2 diabetes mellitus without complications (principal)

== ENCOUNTER → 2024-08-28 15:27 | Outpatient (BNVA) | payer BC, SELFPAY | PROVIDERS: PCP Internal Medicine; Visit Provider Internal Medicine ==

== ENCOUNTER 2024-09-25 13:12 | Outpatient (AMB) | payer BC, SELFPAY ==
--- NOTE | 2024-09-25 13:18 | A.OFFPC_ITS ---
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 Accompanied by: Self / Same As Patient Allergies No Known Allergies Allergy (Mild, Verified 09/25/24 13:18) NOT APPLICABLE Medication List - Last Reconciled 09/25/24 by OLAMIDE Gomez albuterol sulfate 90 mcg/actuation 2 puffs PO TID PRN atorvastatin 1 tab PO DAILY blood sugar diagnostic ([employer] Ultra Test strips) Check fasting sugar daily buprenorphine-naloxone 8-2 mg 1.25 film sublingual DAILY cyclobenzaprine 10 mg PO DAILY PRN fluticasone propion-salmeterol 250-50 mcg/dose (Wixela Inhub) 1 inh inhalation BID lancets ([employer] UltraSoft 2 Lancet) As directed metformin 500 mg PO BID Tobacco use date assessed: 08/28/24 Dental Screening Dental Screen Date: 08/28/24 HPI HPI Comments History of Present Illness Details 54 year old male with history of type 2 dm, copd, chronic low back pain, OUD on suboxone presents to the office for follow up. Was seen in the office 4 weeks ago with worsening L sided low back pain w/ associated sciatica. He has been doing stretches and using heating pads and flexeril as prescribed with resolution of sciatica. He still experiencing chronic low back pain and has history of spinal fusion. He is now on suboxone following prescription opioid addiction following the surgery, follows with Kayla. He reports pain is worse after periods of rest and improves with ambulation. Overall tolerating. He was also started on metformin 500mg BID due to elevated A1c of 7.8%. Reports he is tolerating this well, no adverse effects. He continues on diabetic diet. Fasting glucose around 90-100, later in the afternoon 130-140. Reports asthma/copd is controlled, no recent albuterol use. Compliant with maintenance inhalers. ROS: General: No fevers, malaise, unintentional weight loss Cardiovascular: No chest pain, palpitations, or leg edema Respiratory: No shortness of breath, wheezing, cough GI: No abdominal pain, nausea, vomiting, diarrhea, constipation, melena, hematochezia MSK: see hpi Neuro: see hpi Skin: No rashes or lesions EXAM: Constitutional - Awake and Alert, No apparent distress Eyes - PERRL Cardiovascular - S1S2, RRR, No edema Respiratory - Normal lung expansion, Normal respiratory effort, No respiratory distress, CTA bilaterally Extremities - no calf tenderness bilaterally, no swelling Musculoskeletal - Normal inspection, normal ROM. No midline or paraspinal ttp over the lumbar spine Skin - Warm/Dry Neurological - Alert & oriented x3 Psychological - Appropriate affect [facility] Medical History (Updated 09/25/24 @ 13:39 by OLAMIDE Gomez) Elevated cholesterol Hx-TIA (transient ischemic attack) Diabetes Asthma COPD (chronic obstructive pulmonary disease) Surgical History (Updated 09/12/24 @ 12:28 by Mila Zhao) History of colonoscopy (~10/22/21) History of lung biopsy History of back surgery Family History Mother No problems noted. Father BP (high blood pressure) Social History Housing: House Patient Tobacco Use Status: Former Tobacco user Tobacco use type: Cigarette Cigarettes Per Day: 4 e-Cigarette/Vaping Use: Former Use service: No Current occupational status: employed Cognitive needs: No Hearing needs: No Vision needs: No Questionnaire Thrive Questionnaire Date Thrive assessed: 08/28/24 DENIS-7 AMB Questionnaire DENIS-7 Date DENIS - 7 assessed: 08/28/24 Source: Developed by Drs. Jc Pinto, Mona Alford, Lee Rahman and colleagues, with an educational michael from [employer]. Physical exam (Primary Care) Vital Signs: Last Vital Signs Temp 98.1 F 09/25/24 13:20 Pulse 75 09/25/24 13:20 Resp 16 09/25/24 13:20 BP 160/96 H 09/25/24 13:20 Pulse Ox 96 09/25/24 13:20 Oxygen Delivery Method Room Air 09/25/24 13:20 BMI result Body Mass Index 24.8 Tobacco/Smoking Status: Tobacco use Status Tobacco use date assessed 08/28/24 09/25/24 13:23 Patient Tobacco Use Status Former Tobacco user 09/25/24 13:23 Tobacco use type Cigarette 09/25/24 13:23 e-Cigarette/Vaping Use Former Use 09/25/24 13:23 Thrive Assessment: Date of Thrive Assessment Date Thrive assessed 08/28/24 09/25/24 13:23 Coding Level of Care Code Est Pt Level 4 (91898) Complex EM visit Add On G2211 Diagnoses Chronic low back pain M54.50; G89.29 COPD (chronic obstructive pulmonary disease) J44.9 Diabetes E11.9 Assessment & Plan Assessment & Plan (1) Chronic low back pain: Code(s): M54.50 - Low back pain, unspecified; G89.29 - Other chronic pain Category: Medical Plan: Sciatica resolved. Recommend continuing analgesics prn as well as heat and gentle stretching. Will give rx refill of flexeril to use as needed for pain/spasm. (2) COPD (chronic obstructive pulmonary disease): Code(s): J44.9 - Chronic obstructive pulmonary disease, unspecified Category: Medical Plan: Stable, no recent exacerbation. Continue wixela for maintenance and use albuterol prn for sob/wheezing (3) Diabetes: Code(s): E11.9 - Type 2 diabetes mellitus without complications Category: Medical Plan: Control improving. Continue metformin 500mg BID. Continue diabetic diet. Follow up in 3 months with a1c completed prior to visit. Plan Follow up in 3 months with a1c completed prior to visit Orders: Orders Hemoglobin A1c 3 Months E11.9 - Type 2 diabetes mellitus without complications Medications: Changed From cyclobenzaprine 10 mg PO BEDTIME 14 tabs 0RF To cyclobenzaprine 10 mg PO DAILY PRN 30 tabs 0RF muscle spasm
[2024-09-25 13:20] VITALS: BP 160/96; PULSE 75; RESP 16; TEMP 36.7; O2SAT 96; BMI 24.8
== END 2024-09-25 13:34 | disposition home or self-care (01) ==
LOC: HO.HMCHD 13:13
PROVIDERS: PCP Internal Medicine; Visit Provider Physician Assistant
DX: M54.50 Low back pain, unspecified (principal); G89.29 Other chronic pain; J44.9 Chronic obstructive pulmonary disease, unspecified; E11.9 Type 2 diabetes mellitus without complications

== ENCOUNTER 2025-01-13 16:12 | Outpatient (AMB) | payer BC, SELFPAY ==
[2025-01-13 15:55] VITALS: BP 136/84; PULSE 91; TEMP 36.5; O2SAT 97; BMI 23.8
--- NOTE | 2025-01-13 15:55 | MHC.PC.OV ---
Vital Signs 01/13/25 15:55 Height 5 ft 10 in Weight 75.296 kg BMI 23.8 BP 136/84 Blood Pressure Location Lt brachial Position Sitting Pulse 91 Pulse Source Pulse Oximeter Temp 97.7 F Temp Source Temporal Artery Scan Pulse Oximetry (%) 97 Oxygen Delivery Method Room Air Intake Visit Reasons: routine Hair Preparer Required: No Accompanied by: Self / Same As Patient Allergies No Known Allergies Allergy (Mild, Verified 01/13/25 15:55) NOT APPLICABLE Medication List - Last Reconciled 01/13/25 by OLAMIDE Gomez albuterol sulfate 90 mcg/actuation 2 puffs PO TID PRN atorvastatin 1 tab PO DAILY blood sugar diagnostic (WirelessGateuch Ultra Test strips) Check fasting sugar daily buprenorphine-naloxone 8-2 mg (Suboxone) 1 film buccal DAILY cyclobenzaprine 10 mg PO DAILY PRN fluticasone propion-salmeterol 250-50 mcg/dose (Wixela Inhub) 1 inh inhalation BID lancets (Spring.meTouch UltraSoft 2 Lancet) As directed metformin 500 mg PO BID Tobacco use date assessed: 01/13/25 Dental Screening Dental Screen Date: 01/13/25 Did you have a dental visit in the last 12 months?: No Did you have a dental problem in the last 6 months where you did not have access to dental care?: No HPI HPI Comments History of Present Illness Details 54 year old male with history of type 2 dm, copd, chronic low back pain, OUD on suboxone presenting to the office today for management of chronic conditions/follow-up. Chronic low back pain- much improved with flexeril prn Type 2 diabetes- last A1c 7.8%. Reports he has been compliant with diabetic diet as well as his metformin 500 mg twice daily. Checking glucose levels with average 134. COPD- stable. Rare albuterol use. On wixela OUD- weaning from suboxone, now at 8mg. Follows with Kayla Concerns: None Health Maintenance: Looking for a dentist Last screening colonoscopy 09/2021 with 10 year follow-up advised. Dr. Conte ROS: General: No fevers, malaise, unintentional weight loss HEENT: No blurred vision, diplopia. No sore throat, nasal congestion, rhinorrhea, sinus pain, ear pain Cardiovascular: No chest pain, palpitations, or leg edema Respiratory: No shortness of breath, wheezing, cough GI: No abdominal pain, nausea, vomiting, diarrhea, constipation, melena, hematochezia : No dysuria, hematuria, increased urinary frequency, decreased urinary output MSK: See HPI Neuro: No headaches, weakness, paresthesias Skin: No rashes or lesions EXAM: Constitutional - Awake and Alert, No apparent distress Eyes - PERRL Cardiovascular - S1S2, RRR, No edema Respiratory - Normal lung expansion, Normal respiratory effort, No respiratory distress, CTA bilaterally Extremities - no calf tenderness bilaterally, no swelling Skin - Warm/Dry Neurological - Alert & oriented x3 Psychological - Appropriate affect [facility] Medical History (Updated 01/13/25 @ 17:02 by OLAMIDE Gomez) Opioid use disorder Elevated cholesterol Hx-TIA (transient ischemic attack) Diabetes Asthma COPD (chronic obstructive pulmonary disease) Surgical History History of colonoscopy (~10/22/21) History of lung biopsy History of back surgery Family History Mother No problems noted. Father BP (high blood pressure) Social History Housing: House Patient Tobacco Use Status: Former Tobacco user Tobacco use type: Cigarette Cigarettes Per Day: 4 e-Cigarette/Vaping Use: Former Use service: No Current occupational status: employed Cognitive needs: No Hearing needs: No Vision needs: No Questionnaire PHQ-9 Over the last 2 weeks, how often have you been bothered by any of the following problems? 1. Little interest or pleasure in doing things: not at all 2. Feeling down, depressed, or hopeless: not at all 3. Trouble falling or staying asleep, or sleeping too much: not at all 4. Feeling tired or having little energy: not at all 5. Poor appetite or overeating: not at all 6. Feeling bad about yourself - or that you are a failure or have let yourself or your family down: not at all 7. Trouble concentrating on things, such as reading the newspaper or watching television: not at all 8. Moving or speaking so slowly that other people could have noticed. Or the opposite - being so fidgety or restless that you have been moving around a lot more than usual: not at all 9. Thoughts that you would be better off or of hurting yourself in some way: not at all Total score: 0 Source: Developed by Drs. Jc Pinto, Lee Victoria and colleagues, with an educational michael from [employer]. Thrive Questionnaire Date Thrive assessed: 01/13/25 I am a: Patient Within the past 12 months, did the food you bought not last and you didn't have the money to get more?: Never true Within the past 12 months, did you worry whether your food would run out before you got money to buy more?: Never true Do you have trouble paying for medicines?: No Do you have trouble getting transportation to medical appointments?: No Do you have trouble paying your heating and electricity bill?: No Do you have trouble taking care of your child, family member or friend?: No Do you have trouble with day-to-day activities such as bathing, preparing meals, shopping, managing finances, etc.?: No Are you currently unemployed and looking for a job?: No Are you interested in more education?: No THRIVE Score: 0 AUDIT C Alcohol Use Questionnaire (AUDIT-C) 1. How often do you have a drink containing alcohol?: Never 3. How often do you have six or more drinks on one occasion?: Never Total Score: 0 DENIS-7 AMB Questionnaire DENIS-7 Date DENIS - 7 assessed: 01/13/25 Feeling nervous, anxious, or on edge: 0 = Not at all Not being able to stop or control worryin = Not at all Worrying too much about different things: 0 = Not at all Trouble relaxin = Not at all Being so restless that it is hard to sit still: 0 = Not at all Becoming easily annoyed or irritable: 0 = Not at all Feeling afraid as if something awful might happen: 0 = Not at all Total DENIS-7 score (0-4 normal; 5-9 mild; 10-14 moderate; 15-21 severe): 0 Source: Developed by Drs. Jc Pinto, Lee Victoria and colleagues, with an educational michael from [employer]. Physical exam (Primary Care) Vital Signs: Last Vital Signs Temp 97.7 F 01/13/25 15:55 Pulse 91 01/13/25 15:55 BP 136/84 01/13/25 15:55 Pulse Ox 97 01/13/25 15:55 Oxygen Delivery Method Room Air 01/13/25 15:55 BMI result Body Mass Index 23.8 Tobacco/Smoking Status: Tobacco use Status Tobacco use date assessed 01/13/25 01/13/25 15:56 Patient Tobacco Use Status Former Tobacco user 01/13/25 15:56 Tobacco use type Cigarette 01/13/25 15:56 e-Cigarette/Vaping Use Former Use 01/13/25 15:56 PHQ-9: PHQ-9 Score PHQ-9: Total score 0 01/13/25 16:38 Thrive Assessment: Date of Thrive Assessment Date Thrive assessed 01/13/25 01/13/25 15:56 Coding Level of Care Code Est Pt Level 4 (84478) Complex EM visit Add On G2211 Diagnoses Elevated cholesterol E78.00 Diabetes E11.9 COPD (chronic obstructive pulmonary disease) J44.9 Chronic low back pain M54.50; G89.29 Opioid use disorder F11.90 Assessment & Plan Assessment & Plan (1) Elevated cholesterol: Code(s): E78.00 - Pure hypercholesterolemia, unspecified Category: Medical Plan: Controlled. Continue atorvastatin. Updated labs to be completed prior to next visit (2) Diabetes: Code(s): E11.9 - Type 2 diabetes mellitus without complications Category: Medical Plan: A1c ordered. Continue metformin 500 mg twice daily, medication to be adjusted as needed pending results. Continue diabetic eye exams. Counseled on diabetic diet (3) COPD (chronic obstructive pulmonary disease): Code(s): J44.9 - Chronic obstructive pulmonary disease, unspecified Category: Medical Plan: Stable. Continue Wixela as well as albuterol p.r.n. (4) Chronic low back pain: Code(s): M54.50 - Low back pain, unspecified; G89.29 - Other chronic pain Category: Medical Plan: Stable. Can use Flexeril as needed. Gentle qqoop-do-qxokvy exercises (5) Opioid use disorder: Code(s): F11.90 - Opioid use, unspecified, uncomplicated Category: Medical Plan: Stable. Continue weaning as advised by addiction Medicine. Plan Follow up in the office in 3 months with labs completed prior to visit. A1c to be completed today Orders: Orders Hemoglobin A1c Today E11.9 - Type 2 diabetes mellitus without complications Basic Metabolic Panel 3 Months E11.9 - Type 2 diabetes mellitus without complications, E78.00 - Pure hypercholesterolemia, unspecified, G89.29 - Other chronic pain, J44.9 - Chronic obstructive pulmonary disease, unspecified, M54.50 - Low back pain, unspecified Complete Blood Count Auto Diff 3 Months E11.9 - Type 2 diabetes mellitus without complications, E78.00 - Pure hypercholesterolemia, unspecified, G89.29 - Other chronic pain, J44.9 - Chronic obstructive pulmonary disease, unspecified, M54.50 - Low back pain, unspecified Hemoglobin A1c 3 Months E11.9 - Type 2 diabetes mellitus without complications, E78.00 - Pure hypercholesterolemia, unspecified, G89.29 - Other chronic pain, J44.9 - Chronic obstructive pulmonary disease, unspecified, M54.50 - Low back pain, unspecified Lipid Panel 3 Months E11.9 - Type 2 diabetes mellitus without complications, E78.00 - Pure hypercholesterolemia, unspecified, G89.29 - Other chronic pain, J44.9 - Chronic obstructive pulmonary disease, unspecified, M54.50 - Low back pain, unspecified Liver Panel 3 Months E11.9 - Type 2 diabetes mellitus without complications, E78.00 - Pure hypercholesterolemia, unspecified, G89.29 - Other chronic pain, J44.9 - Chronic obstructive pulmonary disease, unspecified, M54.50 - Low back pain, unspecified Prostate Specific Antigen 3 Months E11.9 - Type 2 diabetes mellitus without complications, E78.00 - Pure hypercholesterolemia, unspecified, G89.29 - Other chronic pain, J44.9 - Chronic obstructive pulmonary disease, unspecified, M54.50 - Low back pain, unspecified Medications: New buprenorphine-naloxone 8-2 mg (Suboxone) 1 film buccal DAILY 30 ea 0RF Patient Instructions: Vaccines: PCV21, Shingrix, RSV, Flu, Td
== END 2025-01-13 17:02 | disposition home or self-care (01) ==
LOC: HO.HMCHD 16:13
PROVIDERS: PCP Physician Assistant; Visit Provider Physician Assistant
DX: E78.00 Pure hypercholesterolemia, unspecified (principal); E11.9 Type 2 diabetes mellitus without complications; J44.9 Chronic obstructive pulmonary disease, unspecified; M54.50 Low back pain, unspecified; G89.29 Other chronic pain; F11.90 Opioid use, unspecified, uncomplicated

== ENCOUNTER 2025-04-29 13:59 | Outpatient (AMB) | payer BC, SELFPAY ==
[2025-04-29 14:36] VITALS: BP 160/84; PULSE 99; RESP 20; TEMP 36.2; O2SAT 85; BMI 25.0
--- NOTE | 2025-04-29 14:36 | A.OFFPC_ITS ---
Vital Signs 04/29/25 14:36 Height 5 ft 10 in Weight 174 lb 4 oz BMI 25.0 BP 160/84 H Blood Pressure Location Rt brachial Position Sitting Respiration 20 Pulse 99 Pulse Source Pulse Oximeter Temp 97.1 F Temp Source Temporal Artery Scan Pulse Oximetry (%) 85 L Oxygen Delivery Method Room Air Intake Visit Reasons: Questioning COPD exacerbation Ophthalmic Medical Technologist Required: No Accompanied by: Significant Other Allergies No Known Allergies Allergy (Mild, Verified 04/29/25 14:36) NOT APPLICABLE Medication List - Last Reconciled 04/29/25 by Luís Jason MD albuterol sulfate 90 mcg/actuation 2 puffs PO TID PRN atorvastatin 1 tab PO DAILY blood sugar diagnostic (adQuotauch Ultra Test strips) Check fasting sugar daily buprenorphine-naloxone 8-2 mg (Suboxone) 1 film buccal DAILY cyclobenzaprine 10 mg PO DAILY PRN fluticasone propion-salmeterol 250-50 mcg/dose (Wixela Inhub) 1 inh inhalation BID lancets (BulbTouch UltraSoft 2 Lancet) As directed metformin 500 mg PO BID naloxone 4 mg/actuation 1 spray intranasal DIRECTED Tobacco use date assessed: 01/13/25 Dental Screening Dental Screen Date: 01/13/25 HPI HPI Comments History of Present Illness Details History of Present Illness The patient is a 55 year old male presenting with shortness of breath. He has a history of COPD, described as stage erythema, secondary to a nearly 30-year smoking history, though he quit 1.5 years ago. He notes a history of a lung bleb that is prone to infection and reports past chemical exposure to hydrochloric acid. A CT scan from last year revealed extensive right apical scarring. Typically, he experiences an exacerbation requiring prednisone annually around May or June. The current episode of shortness of breath and chest tightness began last week, occurring particularly with walking. Associated symptoms include wheezing and a productive cough with an increased amount of white phlegm since starting Mucinex. He denies any fevers or chills. He has been using his albuterol inhaler more frequently in addition to his maintenance Wixela inhaler twice daily. His other chronic conditions include type 2 diabetes managed with metformin 500 mg twice daily, for which his last A1c in July was 7.8%. He admits to occasional non-adherence with his evening dose of metformin. He also takes atorvastatin for cholesterol and Suboxone daily. Medical History: - Chronic Obstructive Pulmonary Disease (COPD) - Type 2 Diabetes Mellitus - Hyperlipidemia - Opioid use disorder - History of tobacco use (quit 1.5 years ago after smoking for ~30 years) - History of lung bleb - History of hydrochloric acid poisoning Medications: - Albuterol inhaler, as needed for short ness of breath - Wixela, twice a day for COPD - Metformin 500 mg, twice a day for diab etes - Atorvastatin, for high cholesterol - Suboxone, daily - Mucinex ([id number]-lglgtow), recently s tarted Diagnostic Results: - Labs: Last HbA1c in July was 7.8%. - Imaging: A CT scan from last year show ed extensive right apical scarring. Social History - Tobacco Use: He quit smoking 1.5 years ago after a history of smoking for approximately 30 years. - Substance Use: The patient is on daily Suboxone. - Living Situation: No one in the [facility] home smokes. [facility] Medical History (Updated 04/29/25 @ 15:03 by Luís Jason MD) COPD exacerbation Tobacco use disorder Opioid use disorder Elevated cholesterol Hx-TIA (transient ischemic attack) Diabetes Asthma COPD (chronic obstructive pulmonary disease) Surgical History History of colonoscopy (~10/22/21) History of lung biopsy History of back surgery Family History Mother No problems noted. Father BP (high blood pressure) Social History Housing: House Patient Tobacco Use Status: Former Tobacco user Tobacco use type: Cigarette Cigarettes Per Day: 4 e-Cigarette/Vaping Use: Former Use service: No Current occupational status: employed Cognitive needs: No Hearing needs: No Vision needs: No Questionnaire Thrive Questionnaire Date Thrive assessed: 01/13/25 AUDIT C Alcohol Use Questionnaire (AUDIT-C) 1. How often do you have a drink containing alcohol?: Never 3. How often do you have six or more drinks on one occasion?: Never Total Score: 0 DENIS-7 AMB Questionnaire DENIS-7 Date DENIS - 7 assessed: 01/13/25 Source: Developed by Drs. Jc Pinto, Mona Alford, Lee Rahman and colleagues, with an educational michael from [employer]. Review of Systems Narrative Review of Systems - Respiratory: Reports dyspnea, particularly on exertion, chest tightness, wheezing, and a productive cough with white phlegm. - Constitutional: Denies fevers and chills. All systems reviewed & are unremarkable except as reviewed in HPI and above Physical exam (Primary Care) Vital Signs: Last Vital Signs Temp 97.1 F 04/29/25 14:36 Pulse 99 04/29/25 14:36 Resp 20 04/29/25 14:36 BP 160/84 H 04/29/25 14:36 Pulse Ox 85 L 04/29/25 14:36 Oxygen Delivery Method Room Air 04/29/25 14:36 Care Plan Goal for BP management: Mildly elevated however in acute exacerabtion of COPD BMI result Body Mass Index 25.0 Tobacco/Smoking Status: Tobacco use Status Tobacco use date assessed 01/13/25 04/29/25 14:41 Patient Tobacco Use Status Former Tobacco user 04/29/25 14:41 Tobacco use type Cigarette 04/29/25 14:41 e-Cigarette/Vaping Use Former Use 04/29/25 14:41 Thrive Assessment: Date of Thrive Assessment Date Thrive assessed 01/13/25 04/29/25 14:41 Narrative Physical Exam General: +Alert and oriented, Well nourished, No acute distress. Eye: Pupils are equal, round and reactive to light, Intact accommodation, Extra ocular movements are intact, Normal conjunctiva, Vision unchanged. HENT: Normocephalic, Atraumatic, Tympanic membranes are clear, Normal hearing, Oral mucosa is moist, No pharyngeal erythema, Ear canals patent. Respiratory: Lungs with wheezing bilaterally, Shortness of breath noted, Respirations are labored, Oxygen saturation low at 87-90%. Cardiovascular: Regular rate, Regular rhythm, S1 auscultated, S2 auscultated, No murmur, Good pulses equal in all extremities, Normal peripheral perfusion, No edema. Gastrointestinal: Soft, Non-tender, Non-distended, Normal bowel sounds, No organomegaly. Musculoskeletal: Normal range of motion, Normal strength, No tenderness, No swelling, No deformity, Normal gait. Integumentary: Warm, Dry, Crum, Intact. Neurologic: Alert, Oriented, Normal sensory, Normal motor function, No focal defects, Cranial Nerves II-XII are grossly intact, Normal deep tendon reflexes. Psychiatric: Cooperative, Appropriate mood & affect, Normal judgment. Coding Level of Care Code Est Pt Level 5 (44365) Add On Problem Visit Only Diagnoses COPD exacerbation J44.1 Type 2 diabetes mellitus without complication, without long-term current use of insulin E11.9 Diabetes mellitus type: type 2 Diabetes mellitus adjunct faculty for medical terminology insulin use: without long-term use Diabetes mellitus complication status: without complication Tobacco use disorder F17.200 Elevated cholesterol E78.00 Opioid use disorder F11.90 Assessment & Plan Assessment & Plan (1) COPD exacerbation: Comment: - The patient presents with classic symptoms of a COPD exacerbation, including increased dyspnea, wheezing, and cough, which is supported by physical exam findings of diffuse wheezing and hypoxemia with an O2 saturation of 87%. - The plan is to treat this exacerbation with a 5-day course of high-dose prednisone and a 5-day course of azithromycin (Z-Wilton). - He is instructed to use his home nebulizer every 4-6 hours around the clock and to seek emergency care if his oxygen saturation persistently drops below 88%. - Orders will be placed for PFTs and a referral to a filler shaker for specialized management. Code(s): J44.1 - Chronic obstructive pulmonary disease with (acute) exacerbation Category: Medical (2) Diabetes: Comment: - His diabetes is poorly controlled, with a recent HbA1c of 7.8% and reported non-adherence to metformin. - He was counseled that the prescribed prednisone will likely cause further hyp erglycemia. - He was instructed to go to the lab today to get his overdue blood work completed. Code(s): E11.9 - Type 2 diabetes mellitus without complications Category: Medical Qualifiers: Diabetes mellitus type: type 2 Diabetes mellitus long-term insulin use: without adjunct faculty for medical terminology use Diabetes mellitus complication status: without complication Qualified Code(s): E11.9 - Type 2 diabetes mellitus without complications (3) Tobacco use disorder: Comment: - Given his nearly 30-year smoking history, he qualifies for lung cancer screening. - An order for a low-dose CT scan of the chest will be placed. Code(s): F17.200 - Nicotine dependence, unspecified, uncomplicated Category: Medical (4) Elevated cholesterol: Comment: - Currently being managed with atorvastatin - Repeat Panel Ordered Code(s): E78.00 - Pure hypercholesterolemia, unspecified Category: Medical (5) Opioid use disorder: Comment: - Currently on suboxone Code(s): F11.90 - Opioid use, unspecified, uncomplicated Category: Medical Plan: Health Maintenance: - Lung Cancer Screening: Discussed the need for and ordered an annual low-dose CT scan for lung cancer screening due to extensive smoking history. - Chronic Disease Management: Instructed patient to complete pending blood work for monitoring of his diabetes. - Specialist Referral: Placed a referral to a filler shaker for ongoing management of COPD and ordered PFTs. Patient was informed and verbally consented to the use of an ambient scribe for clinic note documentation during this visit. Plan I discussed with the patient my assessment that he is experiencing an acute exacerbation of his COPD, evidenced by his worsening dyspnea and wheezing, and the concerning finding of an oxygen saturation of 87%. I explained the treatment plan, which consists of a 5-day course of high-dose prednisone and a Z-Wilton antibiotic. I educated him that while the steroid is necessary, it can have side effects and will likely elevate his blood sugar levels. I provided instructions for home care, including the use of his nebulizer every 4-6 hours and monitoring his oxygen levels, advising him to call 911 if his saturation remains below 88%. We discussed the importance of formal lung function testing and specialist care, so I placed a referral to a filler shaker and an order for PFTs. I also informed him that due to his long smoking history, he qualifies for and will receive an order for annual lung cancer screening. Finally, we reviewed the need for better diabetes control and I urged him to get his overdue lab work done today. Orders: Orders PFT pulmonary function test Today J44.9 - Chronic obstructive pulmonary disease, unspecified Referrals Pulmonology Referral J44.9 - Chronic obstructive pulmonary disease, unspecified Lung Cancer Screening Referral F17.200 - Nicotine dependence, unspecified, uncomplicated Medications: New azithromycin For 250 mg dose pack: take 500 mg today (day 1), then 250 mg for 4 days (days 2-5) PO 6 tabs 0RF prednisone 50 mg PO DAILY 5 tabs 0RF ipratropium-albuterol 0.5 mg-3 mg(2.5 mg base)/3 mL 3 mL inhalation Q4-6H PRN 1 80 mL 8RF wheezing Patient Instructions: - Take the prednisone and the Z-Wilton (antibiotic) exactly as prescribed for 5 days. - Use your nebulizer machine every 4 to 6 hours around the clock, even if you are feeling better. A new prescription for the liquid medication will be sent to the pharmacy. - Check your oxygen levels with your home monitor. If your oxygen level stays below 88%, you need to call 911 or go to the emergency room. - Please go to the lab to get your blood work done today. - You will be contacted by other offices to schedule appointments for a breathing test (PFT), a visit with a lung doctor, and a CT scan for lung cancer screening. - Schedule a follow-up appointment with your primary care provider, Rosa Maria. - A note for your work will be provided for you at the front end architect.
== END 2025-04-29 14:59 | disposition home or self-care (01) ==
LOC: HO.HMCHD 13:59
PROVIDERS: PCP Physician Assistant; Visit Provider Student in an Organized Health Care Education/Training Program
DX: J44.1 Chronic obstructive pulmonary disease with (acute) exacerbation (principal); E11.9 Type 2 diabetes mellitus without complications; F17.200 Nicotine dependence, unspecified, uncomplicated; E78.00 Pure hypercholesterolemia, unspecified; F11.90 Opioid use, unspecified, uncomplicated